=== PATIENT | female | born 1960 | race Caucasian/White ===

== ENCOUNTER 2023-01-26 11:23 | Emergency (ER) | payer OTHER ==
[2023-01-26] MEDS: Aspirin 81 MG Tab.Chew PO ONE (11:25)
[2023-01-26 11:57] LABS: CHLORIDE,CL 104 mEq/L (98-106); SODIUM,NA 144 mEq/L (136-145)
[2023-01-26 12:01] LABS: ESTIMATED GFR 72 mL/min (>=60)
[2023-01-26 12:13] LABS: PTT,PARTIAL THROMBOPLSTIN TIME 23.2 SEC (20.0-30.0)
== END 2023-01-26 12:20 | disposition home or self-care (01) ==
LOC: CC.ED 11:23
DX: F41.9 Anxiety disorder, unspecified (principal); Z79.899 Other long term (current) drug therapy
CPT/HCPCS: 36415; 71046; 80053; 82550; 83615; 83690; 83735; 84484; 85025; 85610; 85730; 93005; 93010; 99284; 99285; A9270-GY